=== PATIENT | female | born 1945 | race Caucasian/White ===

== ENCOUNTER 2020-02-01 07:53 | Outpatient (CLI) | payer MEDICARE, SELFPAY ==
--- NOTE | 2020-02-01 09:26 | CT_ITS ---
WS: [id number] CT ABDOMEN PELVIS TECHNIQUE: Contrast-enhanced CT of the abdomen and pelvis with coronal and sagittal reformatted image s. CLINICAL INFORMATION: RLQ PAIN COMPARISON: None. DLP: 1088.[address] scans at [facility] use at least one of these dose optimization techniques: automat ed exposure control; mA and/or kV adjustment per patient size (includes targeted exams where dose is matched to clinical indication); or iterative reconstruction. FINDINGS: Prior cholecystectomy. Prior hysterectomy. Liver is normal in appearance. Normal portal vein and sple ben vein. A few tiny cysts in the liver. Normal spleen. Adrenal glands are normal. Normal renal paren chymal enhancement. No hydronephrosis. 15 mm right renal cyst. Small esophageal hiatal hernia. Prominent lymph nodes in the upper abdomen along the celiac axis likely reactive. Mild circumferentia l wall thickening involving the right ascending colon and splenic flexure. Recommend further evaluati on with colonoscopy. Mild sigmoid constipation. Pelvic phleboliths. Lung bases are well aerated. No periaortic retroperitoneal lymphadenopathy. Lumbar curve convex left. CT/CT abdomen pelvis w con* [id number] IMPRESSION: 1. Prior cholecystectomy and hysterectomy. 2. Mild circumferential thickening involving the right colonic splenic flexure with some luminal narrowing. Recommend further evaluation with colonoscopy to exclude neoplasm. 3. Liver is normal in appearance. 4. Small esophageal hernia. 5. Small right renal cyst measuring 15 mm. 6. Mild sigmoid constipation. 7. Normal caliber abdominal aorta.
[2020-02-01] MEDS: iohexol 300 mg/mL 50 mL Btl PO (09:39)
[2020-02-01] MEDS: iohexol 300 mg/mL 100 mL Btl IV (09:40)
[2020-02-01 09:45] LABS: Blood Urea Nitrogen 10 mg/dL (8-23)
== END 2020-02-01 07:54 | disposition home or self-care (01) ==
LOC: RADWPI 07:59
PROVIDERS: Family Provider Family Medicine; PCP Family Medicine; Visit Provider Family Medicine
DX: I10 Essential (primary) hypertension (principal); R10.31 Right lower quadrant pain; K44.9 Diaphragmatic hernia without obstruction or gangrene; Q61.01 Congenital single renal cyst; K59.09 Other constipation
CPT/HCPCS: 74177; 82565; 84520; Q9967

== ENCOUNTER 2020-02-29 09:55 | Day surgery (SDC) | payer MEDICARE, SELFPAY ==
[2020-02-27 13:59] VITALS: BMI 24.1
[2020-02-29 10:09] VITALS: BP 144/89; PULSE 81; RESP 18; TEMP 36.1; O2SAT 98
[2020-02-29] MEDS: sodium chloride 0.9% 1,000 ML 30 ML IV (10:30)
--- NOTE | 2020-02-29 10:38 | P.ANESASSM_ITS ---
Pre-Anesthetic Assessment Pre-Anesthetic Assessment: Height/Weight: Height 1.65 m Weight 65.771 kg Temp Pulse Resp BP Pulse Ox 97 F L 81 18 144/89 98 02/29/20 10:09 02/29/20 10:09 02/29/20 10:09 02/29/20 10:09 02/29/20 10:09 Preop Diagnosis: Colon wall thickening Proposed Procedure: Operation Date: 02/29/20 11:15 Proposed Procedures p Colonoscopy 30109/K63.9(Not Applicable) - Jarod Dyer MD Last intake: Intake Last Liquid Date 02/28/20 Last Liquid Time 23:00 Last Solid Date 02/27/20 Last Solid Time 18:00 Social: Social History: No alcohol and No tobacco Exam: Pre-Anes Outpt Exam: alert, oriented x 3, clear to auscultation bilaterally and regular rate & rhythm Airway: Submandibular: WNL Cervical ROM: WNL MP: 2 Dentition: Other (poor) History/ROS: No significant history except as noted Pulmonary: Pulmonary: None reported CV/HEM: CV/HEM: HTN : : None reported Hepatic: Hepatic: None reported GI: GI: None reported Metabolic: Metabolic: None reported Musc/skel: Musc/skel: None reported Neuropsych: Neuropsych: Anxiety and Depression Anesthetic Plan: ASA status: 2 Anesthesia: Anesthesia Evaluation and MAC Risk of > 500 ml blood loss (7ml/kg in children): No PFSH Anesthesia PFSH: Medical History Chronic constipation Hypertension Left breast lump Melanoma Surgical History History of colonoscopy with polypectomy History of hysterectomy History of laparoscopic cholecystectomy Family History Denies family history of Anesthesia complication Bleeding disorder Social History Smoking and tobacco status: never smoked Second hand smoke exposure: No Alcohol intake: never Adopted: No Caregiver/support person: Yes Lives independently: Yes Household members: spouse Housing: House Marital status: Current occupational status: retired Current occupational exposures/hazards: No Pets and animals: No History of recent travel: No Sexually active: No Current gender identity: Female Se[place]/Samaritan: Restorationism Data Anesthesia Cardiac Studies: No Data to Display
--- NOTE | 2020-02-29 11:47 | W.PM.OPSUD ---
Surgery/Procedure H&P Update DATE OF PROCEDURE: February 29, 2020 DATE H&P PERFORMED: 02/19/20 H&P UPDATE INFORMATION: I have reviewed H&P completed within last 30 days, I have examined patient prior to procedure and No changes to prior documentation PREOP DIAGNOSIS: Colon wall thickening PLANNED PROCEDURE: Operation Date: 02/29/20 11:15 Proposed Procedures p Colonoscopy 20395/K63.9(Not Applicable) - Jarod Dyer MD
[2020-02-29 12:41] VITALS: BP 134/72; PULSE 71; RESP 18; TEMP 36.2; O2SAT 94
[2020-02-29 12:56] VITALS: BP 135/70; PULSE 72; RESP 18; TEMP 36.6; O2SAT 96
== END 2020-02-29 13:15 | disposition home or self-care (01) ==
PROVIDERS: PCP Family Medicine; Visit Provider Surgery
PROC: 0DJD8ZZ Inspection of Lower Intestinal Tract, Via Natural or Artificial Opening Endoscopic (ICD-10-PCS; CPT 45378; principal; 2020-02-29 11:10)
DX: K63.9 Disease of intestine, unspecified (principal); K57.30 Diverticulosis of large intestine without perforation or abscess without bleeding; I10 Essential (primary) hypertension
CPT/HCPCS: 12345; 45378; J2704; J7030

== ENCOUNTER 2020-09-16 15:16 | Outpatient (CLI) | payer MEDICARE, SELFPAY ==
--- NOTE | 2020-09-16 15:21 | MM_ITS ---
WS: [id number] BILATERAL DIGITAL SCREENING MAMMOGRAPHY WITH CAD CLINICAL INFORMATION: SCREENING HISTORY: Screening mammogram. No current complaints. COMPARISON: and TECHNIQUE: Bilateral CC and MLO views. FINDINGS: Scattered fibroglandular densities bilaterally. No suspicious focal mass, asymmetry, calcifications, or architectural distortion. No evidence of malignancy. A few intramammary lymph nodes. Punctate calc ifications. Stable 6 mm ovoid density inferior left breast MM/[place] [id number] IMPRESSION: BI-RADS: 2-Benign FOLLOW UP: 1 Year Follow-up Recommend return to annual screening mammography.
== END 2020-09-16 15:17 | disposition home or self-care (01) ==
LOC: RADSHAW 15:19
PROVIDERS: PCP Family Medicine; Visit Provider Family Medicine
DX: Z12.31 Encounter for screening mammogram for malignant neoplasm of breast (principal)
CPT/HCPCS: 77067

== ENCOUNTER 2020-09-19 05:57 | Outpatient (CLI) | payer MEDICARE, SELFPAY ==
[2020-09-19 10:46] LABS: Basophils # 0.1 10^3/uL (0.0-0.1); Eosinophils # 0.1 10^3/uL (0.0-0.8); Eosinophils % 1.2 %; Hematocrit 42.7 % (37.0-47.0); Lymphocytes # 2.4 10^3/uL (0.8-4.8); Lymphocytes % 23.9 %; Mean Corpuscular HGB Conc 32.8 g/dL (30.0-36.0); Mean Corpuscular Hemoglobin 27.7 pg (28.0-34.0); Mean Corpuscular Volume 84.4 fL (81-99); Mean Platelet Volume 9.9 fL (7.4-10.4); Monocytes # 0.7 10^3/uL (0.2-0.9); Monocytes % 6.7 %; Neutrophils # 6.72 10^3/uL (1.8-7.7); Nucleated Red Blood Cells % 0 %; Platelet Count 439 10^3/cmm (130-400); Red Blood Count 5.06 10^6/uL (4.1-5.3); Red Cell Distribution Width 13.4 % (12.1-15.1)
[2020-09-19 11:01] LABS: Alanine Aminotransferase 18 U/L (0-33); Albumin Level 4.4 g/dL (3.5-5.2); Alkaline Phosphatase 86 IU/L (35-105); Anion Gap 15.8 (5-19); Aspartate Amino Transferase 20 U/L (0-32); Blood Urea Nitrogen 9 mg/dL (8-23); Calcium 9.8 mg/dL (8.5-10.5); Carbon Dioxide 25 mmol/L (22-29); Chloride 100 mmol/L (98-107); Globulin 3.2 g/dL (1.3-4.6); Glucose 97 mg/dL (65-115); Lactate Dehydrogenase 161 U/L (135-214); Osmolality Calculated 283 mOsm/kg (285-295); Potassium 3.8 mmol/L (3.5-5.1); Sodium 137 mmol/L (136-145); Total Bilirubin 0.4 mg/dL (0.15-1.2); Total Protein 7.6 g/dL (6.6-8.7)
--- NOTE | 2020-09-22 15:38 | ONC FU_ITS ---
Dr. Kruse Patient Follow-Up Note Patient: Roselia Isabel Unit #: [id number]: [id number] Dicatated By: Solomon Kruse M.D.Date of Visit:Sep 19, 2020 Onc Med Follow-up/Prog Note Chief Complaint: Melanoma. History of Present Illness: This is a 75 year-old woman with melanoma of the left cheek, stage IB (T2a, N0, M0). She underwent wide excision of the melanoma in September 2012. Complete records were not available to me, but it was a Dev level IV lesion with a Breslow depth of 1.12 mm. Her treatment also included left cervical and left supraclavicular sentinel lymph node biopsies, which apparently were negative. She also had a staging PET/CT which showed no definite evidence of malignancy. The findings did include bilateral subcentimeter cervical lymph nodes which showed minimal activity and were felt to be nonspecific. There was moderate activity associated with a 1.2 cm hypodense lesion of the right thyroid. She did not receive any further treatment. She has since then continued regular surveillance with Dr. Nelson Garcia in [place]. On a follow-up visit wit him in 2014 she had a palpable nodule in the left cervical area, and as a precaution Dr Kruse was asked to evaluate her. She was seen here on 07/12/2015. At the time she reported that she had been having problems with a left lower tooth. She was seeing a dentist, and she ultimately did have the tooth capped. Her evaluation Carla included CBC and comprehensive metabolic profile, both of which were unremarkable. She had normal LDH level and normal thyroid profile. At the time Dr Kruse felt that the left cervical lymph node was not clinically significant, and ultimately it appeared to more likely be a prominent left carotid artery. She is being followed on observation. She has additional history of hypertension and she also is known to have multinodular goiter. She was noted to have osteoporosis on a previous CT bone density, and a repeat Dexa scan in August 2015 also showed evidence of osteopenia with T score of -1.8 in the lumbar spine, -1.5 in the left femur and -1.9 in the right femur. Her 25-hydroxy vitamin D level was low at 18 ng/mL. She also has a history of anxiety/depression. Colonoscopy in August 2015 showed 2 tiny polyps in the ascending colon with pathology just reporting minor adenomatous and hyperplastic changes. She is a nonsmoker. She had presented in February 2016 with multiple complaints including fatigue and generalized muscle skeletal pain. Her evaluation at that time included normal CBC, sedimentation rate, and CRP level. The comprehensive metabolic profile was unremarkable except for slight elevation of the calculated serum globulin level. RA titer was normal and an JALEEL screen was negative. An x-ray of the pelvis was negative. She continued observation/expectant management for the melanoma. INTERIM HISTORY: She is seen for a followup visit. She has been feeling pretty good generally. She is tired at times, but she still has normal activity. ECOG score is 0. She has good appetite. She has no fever or night sweats. She has a little bit of cough, attributable to allergies. She has no shortness of breath or chest pain. She currently has no GI or complaints. She sometimes has stiffness in her joints, especially at night. She does have pain, but it is managed adequately with tramadol. She sometimes has a little bit of dizziness. She has no focal neurologic symptoms. Medications: Aleve Tablet Oral PRN, AmLODIPine Besylate 1 Tablet (of 5 mg) Oral daily, Cholecalciferol 1 (1000 Units) Tablet Oral daily, TraMADol HCl 1 Tablet (of 50 mg) Oral at bedtime PRN, Wal-Zyr 1 Tablet (of 10 mg) Oral daily Allergies: No Known Allergies. Review of Systems: Constitutional - She sometimes feels tired, she has normal activity. Appetite is good and weight is stable. No fever, night sweats, or hot flashes. ECOG score is 0, ENMT - No sinus congestion/drainage. No mouth sores. No sore throat or difficulty swallowing, Hematologic/Lymphatic - No abnormal bruising or bleeding, Respiratory - No shortness of breath. She has a little bit of cough, attributable to allergies. No pleuritic pain or hemoptysis, Cardiovascular - No angina pain. No palpitations, Gastrointestinal - No nausea or vomiting. No heartburn or acid reflux. She was having constipation, but her bowel function has improved now. No blood in the stool or black stools, Genitourinary (F) - No dysuria or hematuria. No urinary frequency. No urgency or incontinence, Musculoskeletal - She sometimes has stiffness in her joints, which tends to be worse at night, Integumentary - No skin rash and no new skin lesions, Neurologic - No headache. She sometimes has a little bit of dizziness. No numbness or tingling. No other focal neurologic symptoms, Psychiatric - Her anxiety/depression has improved. She still does not sleep well at night. Vital Signs: Performed on Sep 19, 2020 11:38 Height - 65.00 in Weight - 150.6 lbs BSA - 1.75 sq.m BMI - 25.06 Temperature - 97.3 F (LOW) Pulse - 89 /min Respiration - 16 /min BP - 141/74 mm(hg) (HIGH) O2 Sat - 99 % Pain - 0 Physical Examination: Constitutional - She looks good generally, Eyes - Sclerae nonicteric. Conjunctivae clear, ENMT - No lesions noted in the oral cavity, Hematologic/Lymphatic - No cervical, clavicular, or axillary adenopathy, Respiratory - Lungs are clear with good air movement bilaterally, Cardiovascular - Heart rhythm is regular. There is no murmur, gallop, or rub noted, Abdomen - Soft. Liver and spleen are not enlarged. There is no abdominal mass or ascites noted and there is no inguinal adenopathy, Extremities - No edema, Integumentary - No suspicious skin lesions noted, Neurologic - No focal neurologic deficits noted. Lab/Imaging: Test performed on Sep 19, 2020 10:30 LDH (Total) 161 U/L Sodium 137 mmol/L Potassium 3.8 mmol/L Chloride 100 mmol/L CO2 25 mmol/L Anion Gap 15.8 BUN 9 mg/dL Creatinine 0.6 mg/dL Cr Clearance (Est) 88.7100 mL/min Glucose 97 mg/dL Osmolality - Calculated 283 mOsm/kg Calcium 9.8 mg/dL Protein, Total 7.6 g/dL Albumin 4.4 g/dL Globulin 3.2 g/dL Bilirubin, Total 0.4 mg/dL ALT (SGPT) 18 U/L AST (SGOT) 20 U/L Alkaline Phosphatase 86 IU/L WBC 10.0 10 3/uL RBC 5.06 10 6/uL HGB 14.0 g/dL HCT 42.7 % MCV 84.4 fL MCH 27.7 pg MCHC 32.8 g/dL RDW 13.4 % Platelet Count 439 10 3/cmm MPV 9.9 fL Neutrophils 6.72 10 3/uL Lymphocytes 2.4 10 3/uL Monocytes 0.7 10 3/uL Eosinophils 0.1 10 3/uL Basophils 0.1 10 3/uL Neutrophil % 67.0 % Lymphocyte % 23.9 % Monocyte % 6.7 % Eosinophil % 1.2 % Basophils % 1.0 % NRBC % 0 % Impression: 1. The patient has a history of melanoma of the left cheek, stage IB (pT2a, pN0, M0). Her treatment included wide excision in September 2012 along with sentinel left cervical and sentinel left supraclavicular lymph node biopsies. She has otherwise just been followed on observation. 2. She was found to have a left neck nodule in 2014. This was initially thought to be a mildly enlarged cervical lymph node, but it appears more likely to be a prominent left carotid artery. Her other medical illnesses include: 3. Hypertension. 4. Multinodular goiter. 5. Osteopenia by dexa scan. 6. Vitamin D deficiency. 7. Chronic constipation. 8. Anxiety/depression. During her follow-up, she had reported significant musculoskeletal pain, but it did show some improvement with chondroitin sulfate/glucosamine. It is otherwise adequately managed with tramadol. She also continues to have some fatigue, but overall she appears to be doing well clinically with no evidence of recurrence of the melanoma. Plan: She remains on observation/expectant management for the melanoma. She will be given refills for the tramadol, as it has been effective in managing her pain. I will just see her again in 1 year. Signed By: Solomon Kruse M.D. <<Signature on File>>
== END 2020-09-19 05:58 | disposition home or self-care (01) ==
LOC: ONCMED 06:00
PROVIDERS: PCP Family Medicine; Visit Provider Internal Medicine Medical Oncology
DX: Z08 Encounter for follow-up examination after completed treatment for malignant neoplasm (principal); Z85.820 Personal history of malignant melanoma of skin; I10 Essential (primary) hypertension; E04.2 Nontoxic multinodular goiter; M85.80 Other specified disorders of bone density and structure, unspecified site; E55.9 Vitamin D deficiency, unspecified; K59.09 Other constipation; F41.9 Anxiety disorder, unspecified; F32.9 Major depressive disorder, single episode, unspecified; R53.83 Other fatigue; Z79.899 Other long term (current) drug therapy
CPT/HCPCS: 36415; 80053; 83615; 85025; G0463

== ENCOUNTER → 2021-10-08 15:20 | Outpatient (BNVA) | payer MEDICARE, SELFPAY | PROVIDERS: PCP Family Medicine; Visit Provider Family Medicine Adult Medicine | DX: Z20.828 Contact with and (suspected) exposure to other viral communicable diseases (principal) | CPT/HCPCS: 87635 ==

== ENCOUNTER → 2023-05-18 10:22 | Outpatient (BNVA) | payer MEDICARE, SELFPAY | PROVIDERS: PCP Family Medicine; Visit Provider Family Medicine | DX: Z98.890 Other specified postprocedural states (principal); Z85.820 Personal history of malignant melanoma of skin; E55.9 Vitamin D deficiency, unspecified; I10 Essential (primary) hypertension; Z00.00 Encounter for general adult medical examination without abnormal findings | CPT/HCPCS: 80053; 80061; 82306; 85025 ==

== ENCOUNTER 2023-06-04 13:24 | Outpatient (CLI) | payer MEDICARE, SELFPAY ==
--- NOTE | 2023-06-04 13:46 | MM_ITS ---
WS: [id number] BILATERAL 3D TOMOSYNTHESIS DIGITAL SCREENING MAMMOGRAPHY WITH CAD CLINICAL INFORMATION: SCREENING HISTORY: Screening mammogram. No current complaints. COMPARISON: 2020 TECHNIQUE: Bilateral CC and MLO views. FINDINGS: Scattered fibroglandular densities bilaterally. No suspicious focal mass, asymmetry, calcifications, or architectural distortion. No evidence of malignancy. Punctate and lucent centered calcifications R IGHT breast. Stable 5 mm nodular density anterior inferior LEFT breast IMPRESSION: MM/[place] [id number] BI-RADS: 2-Benign FOLLOW UP: 1 Year Follow-up Recommend return to annual screening mammography.
== END 2023-06-04 13:25 | disposition home or self-care (01) ==
LOC: RAD 13:26
PROVIDERS: PCP Family Medicine; Visit Provider Family Medicine
DX: Z12.31 Encounter for screening mammogram for malignant neoplasm of breast (principal)
CPT/HCPCS: 77063; 77067; 80053; 80061; 82306; 85025

== ENCOUNTER → 2023-06-23 13:07 | Outpatient (BNVA) | payer MEDICARE, SELFPAY | PROVIDERS: PCP Family Medicine; Visit Provider Dermatology | DX: D18.01 Hemangioma of skin and subcutaneous tissue (principal); Z85.820 Personal history of malignant melanoma of skin; L82.1 Other seborrheic keratosis; L81.4 Other melanin hyperpigmentation | CPT/HCPCS: 99203 ==

== ENCOUNTER → 2024-06-15 10:46 | Outpatient (BNVA) | payer MEDICARE, SELFPAY | PROVIDERS: PCP Family Medicine; Visit Provider Family Medicine | DX: E11.9 Type 2 diabetes mellitus without complications (principal); R10.9 Unspecified abdominal pain | CPT/HCPCS: 80053; 80061; 81000; 83690; 84443; 85025 ==

== ENCOUNTER 2025-03-22 13:28 | Outpatient (CLI) | payer MEDICARE, SELFPAY ==
--- NOTE | 2025-03-22 14:00 | XR_ITS ---
WS: [id number] SCREENING DEXA SCAN [facility] CLINICAL INFORMATION: f/uon osteoporosis COMPARISON: 2018 FINDINGS: The L1-L4 bone mineral density measures 1.032 g/cm2. This corresponds to a T score score of -1.2 and Z score of 0.5. Left femoral neck bone mineral density measures 0.603 g/cm2. This corresponds to a T score of -3.2 and Z score of -1.3. Right femoral neck bone mineral density measures 0.664 g/cm2. This corresponds to a T score -2.7of and Z score of -0.8. Mean femoral neck bone mineral density measures 0.634 g/cm2. This corresponds to a T score of -3.0 and Z score of -1.1. XR/XR DEXA axial skeleton* [id number] IMPRESSION: Osteopenia lumbar spine. Osteoporosis femoral necks. Patient's FRAX calculated 10 year probability for major osteoporotic fracture i s 25.0% and osteoporotic hip fracture is 10.5%. Bone mineral density lumbar spine increased 6.3% Bone mineral density femoral necks decreased -12.7%
== END 2025-03-22 13:29 | disposition home or self-care (01) ==
PROVIDERS: PCP Family Medicine; Visit Provider Family Medicine
DX: M81.0 Age-related osteoporosis without current pathological fracture (principal); Z00.00 Encounter for general adult medical examination without abnormal findings; M85.88 Other specified disorders of bone density and structure, other site
CPT/HCPCS: 77080

== ENCOUNTER 2025-03-27 07:22 | Outpatient (CLI) | payer MEDICARE, SELFPAY ==
--- NOTE | 2025-03-27 07:25 | CT_ITS ---
WS: [id number] CT NECK WITH CONTRAST HISTORY: hx of melanoma TECHNIQUE: Contiguous 2 mm axial images are performed through the neck with intravenous contrast. Sagittal and coronal reformats are also submitted. All CT scans at [facility] use at least one of these dose optimization techniques: automated exposure control; mA and/or kV adjustment per patient size (includes targeted exams where dose is matched to clinical indication); or iterative reconstruction. CONTRAST: CONTRAST: Omnipaque 350; 100 mL IV. DLP: 172.81 mGy.cm COMPARISON: 01/14/2006 Nasopharynx, oropharynx, hypopharynx and larynx are unremarkable. No soft tissue masses or abnormal enhancement. Torus tubarius and fossa of Rosenmuller and parapharyngeal fat are normal. Numerous small bilateral cervical chain lymph nodes. These lymph nodes are round and slightly hypervascular with loss of the normal fatty hilum. The largest lymph node is on the RIGHT measuring 10 mm in short axis diameter at level 2. Smaller 7 mm LEFT level 2 lymph node. There are additional cervical chain lymph nodes at multiple stations which are smaller. The subcentimeter lymph nodes are hypervascular but not enlarged. There are a few small lymph nodes in the mediastinum which are also subcentimeter but rounded and hypervascular. 13 mm RIGHT axillary lymph node. Small bilateral thyroid nodules. No osseous abnormalities. Advanced cervical spondylosis. Bilateral mucoperiosteal thickening in the maxillary sinuses. No air-fluid levels. Lung apices are clear. CT/CT neck w con* [id number] IMPRESSION: 1. Multiple, mildly hyperemic bilateral cervical chain lymph nodes. The larges t lymph node is at level 2 on the RIGHT measuring 10 mm in short axis diameter. Lymph nodes were also noted on a prior CT from 2005 and similar distributions. The lymph nodes in 2006 are slightly greater size than on today's exam. Due to their number and round appearance early metastatic adenopathy needs to be cons idered. The lymph nodes are not significantly enlarged. 2. Mildly enlarged, indeterminate RIGHT axillary lymph node at 13 mm. 3. No laryngeal or pharyngeal mass identified. 4. Consider PET/CT follow-up to evaluate the adenopathy further.
[2025-03-27] MEDS: iohexol 350 mg/mL 500 mL Btl (per mL) IV (07:57)
== END 2025-03-27 07:23 | disposition home or self-care (01) ==
PROVIDERS: Radiology Neuroradiology; PCP Family Medicine; Visit Provider Family Medicine
DX: M47.892 Other spondylosis, cervical region (principal); Z98.890 Other specified postprocedural states; Z85.820 Personal history of malignant melanoma of skin; R59.0 Localized enlarged lymph nodes; E04.2 Nontoxic multinodular goiter; J34.89 Other specified disorders of nose and nasal sinuses
CPT/HCPCS: 70491; 82565; 84520

== ENCOUNTER 2025-04-06 08:32 | Outpatient (CLI) | payer MEDICARE, SELFPAY ==
--- NOTE | 2025-04-06 08:30 | PETR_ITS ---
PROCEDURE INFORMATION: Exam: PET/CT Skull Base to Mid-thigh Exam date and time: 04/06/2025 9:25 AM Age: 79 years old Clinical indication: Symptoms: Enlarged lymph nodes; Prior surgery; Surgery date: 6+ months; Surgery type: Melanoma removed left side of face and neck; Melanoma 2013 left cheek; Additional info: New lymph nodes/ HX of melanoma LABS AND CLINICAL REPORTS: Glucose: 104 mg/dl Treatment strategy for malignancy (PET staging): Restaging (PS) TECHNIQUE: Imaging protocol: Following at least four-hour fasting and following the injection of radiopharmaceutical, low dose CT images were obtained. Then, PET images were obtained. Attenuation corrected images were constructed using the CT scan. Fused images of PET and CT were reviewed. The standardized uptake values (SUV) reported below are maximum values within a region of interest, expressed in gm/ml. Exam includes orbital meatal line to mid-thigh. SUV normalization method: BodyWeight Radiopharmaceutical: 11.51 mCi F-18 FDG (Fluorodeoxyglucose), IV. Time of imaging post radiopharmaceutical administration: 47 minutes Injection site: left ac COMPARISON: CT neck w con* [id number] 03/27/2025 7:55 AM FINDINGS: Brain: Visualized brain has normal physiologic uptake. Pharynx: No abnormal uptake. Larynx: No abnormal uptake. Thyroid: Focal coarsely calcified right thyroid lobe nodule measuring 1.0 cm demonstrating increased FDG uptake, maximum SUV 4.5. Lungs, pleura and trachea: No abnormal uptake. Scattered punctate calcified granulomas. Heart: Normal physiologic uptake. Mediastinal space: No abnormal uptake. Diaphragm: There is a small hiatal hernia. Liver: No abnormal uptake. The liver demonstrates punctate calcifications, consistent with remote granulomatous organism exposure. Gallbladder and biliary ducts: No abnormal uptake. Status post cholecystectomy. Pancreas: No abnormal uptake. Spleen: No abnormal uptake. The spleen demonstrates punctate calcifications, consistent with remote granulomatous organism exposure. Adrenal glands: No abnormal uptake. Kidneys and ureters: Normal physiologic uptake. Scattered bilateral simple renal cysts without FDG uptake. Stomach and bowel: No abnormal uptake. Colonic diverticulosis without evidence of diverticulitis. Reproductive: There has been a hysterectomy. Vasculature: No abnormal uptake. Lymph nodes: Bilateral mildly prominent cervical lymph nodes, including a stable enlarged 1.0 cm right level 2A lymph node. There are scattered prominent mediastinal lymph nodes measuring up to 1.0 cm in short axis in the precarinal station. Additional left common and external iliac lymphadenopathy, with lymph nodes measuring up to 1.2 cm in short axis. There is no abnormal FDG uptake. No abnormal mikey uptake in the head/neck, chest, abdomen or pelvis. Skeleton: No abnormal uptake in the visualized axial and appendicular skeleton. Soft tissues: No abnormal uptake in the visualized head, neck, chest, abdomen, pelvis, and extremities. METRICS: Mediastinal blood pool: Mean SUV of 2.1 Liver uptake: Mean SUV of 2.4 Other findings: Nonspecific fat stranding and haziness along the left presacral space with increased FDG uptake, maximum SUV 8.8 (see for example series 202, images 231-249 and series 202, images 233-245). PET/PET skull to thigh INIT [id number] IMPRESSION: 1. Nonspecific right cervical, mediastinal and intra-abdominal lymphadenopathy without abnormal FDG uptake. Findings remain nonspecific and possibly reactive, although continued surveillance is recommended. 2. Nonspecific FDG avid right thyroid lobe 1.0 cm nodule. Recommend dedicated thyroid ultrasound. 3. Nonspecific fat stranding and haziness along the left presacral space with increased FDG uptake, maximum SUV 8.8. This area of fat stranding is similar to slightly more conspicuous compared to a prior study from 2020. There is no focal lesion. This may be inflammatory or sequela of prior treatment, although remains indeterminate.
== END 2025-04-06 08:33 | disposition home or self-care (01) ==
PROVIDERS: PCP Family Medicine; Visit Provider Family Medicine
DX: R59.1 Generalized enlarged lymph nodes (principal); Z98.890 Other specified postprocedural states; Z85.820 Personal history of malignant melanoma of skin; E04.1 Nontoxic single thyroid nodule; R93.89 Abnormal findings on diagnostic imaging of other specified body structures; J84.10 Pulmonary fibrosis, unspecified; K44.9 Diaphragmatic hernia without obstruction or gangrene; R93.2 Abnormal findings on diagnostic imaging of liver and biliary tract; Z90.49 Acquired absence of other specified parts of digestive tract; D73.89 Other diseases of spleen; N28.1 Cyst of kidney, acquired; K57.30 Diverticulosis of large intestine without perforation or abscess without bleeding; Z90.710 Acquired absence of both cervix and uterus
CPT/HCPCS: 78815; A9552

== ENCOUNTER 2025-04-17 13:53 | Outpatient (CLI) | payer MEDICARE, SELFPAY ==
--- NOTE | 2025-04-17 14:00 | US_ITS ---
WS: [id number] THYROID ULTRASOUND HISTORY: thyroid nodule on PET scan COMPARISON: Ultrasound 04/02/2016, PET/CT 04/06/2025 Right lobe: 1.5 cm x 1.6 cm x 3.3 cm (w x ap x l). Volume: 3.9 cm3. Normal sized gland. Solid and cystic nodule with coarse calcification in the mid to lower RIGHT thyroid. Nodule measures 1.1 x 1.0 x 1.4 cm. There are a few smaller additional nodules. Left lobe: 1.3 cm x 1.9 cm x 4.5 cm (w x ap x l). Volume: 5.4 cm3. Normal sized gland with several nodules. Solid and cystic nodule mid gland with a few punctate calcifications measures 1.0 x 1.2 x 1.6 cm. Additional solid nodule with a few punctate calcifications measures 1.2 x 1.2 x 1.4 cm. Location has not been otherwise labeled. These nodules appear to be in the mid and lower gland. Isthmus: 0.2 cm. US/US thyroid [id number] IMPRESSION: 1. Bilateral thyroid nodules. 2. TI-RADS 4; mid RIGHT thyroid nodule. This corresponds to the nodule seen on recent PET/CT imaging. FNA can be attempted or yearly follow-up. FNA is not typ ically recommended until these nodules are greater than 1.5 cm. Due to the PET/ CT findings FNA can be attempted at this time. 3. TI-RADS 4; 2 nodules in the LEFT thyroid. Both of these nodules have punctat e calcifications and suspicious features. Recommend ultrasound-guided FNA.
== END 2025-04-17 13:54 | disposition home or self-care (01) ==
PROVIDERS: PCP Family Medicine; Visit Provider Family Medicine
DX: E04.2 Nontoxic multinodular goiter (principal); E07.89 Other specified disorders of thyroid
CPT/HCPCS: 76536

== ENCOUNTER 2025-05-21 12:36 | Emergency (ER) | payer MEDICARE, SELFPAY ==
--- OUTSIDE RECORDS SUMMARY | 2025-05-21 12:42 | XMS_ITS | Encounter Summary ---
Author Organization [facility] Address [address] [place] [address] Care Team Providers Care Stamp Classifier Name Role Phone Unavailable Primary Care Provider Unavailabl e Encounter Details Date Type Department Care Team (Latest Contact Info) Description 07/11/2003 Outpatient Historical [facility] Germain Mendiola, Feliberto Guzman MD [address] [place] [phone] HYPERTENSION NOS (Primary Dx); BRONCHITIS NOS; TACHYCARDIA NOS; HEMATURIA Social History Tobacco Use Types Packs/Day Years Used Date Smoking Tobacco: Never Assessed Comments Unknown Sex and Gender Information Value Date Recorded Sex Assigned at Not on file Legal Sex Female 4:03 AM [employer] Gender Identity Not on file Sexual Orientation Not on file documented as of this encounter Plan of Treatment Not on file documented as of this encounter Visit Diagnoses Diagnosis Unspecified essential hypertension- Primary Bronchitis, not specified as acute or chronic Tachycardia, unspecified Hematuria documented in this encounter
--- OUTSIDE RECORDS SUMMARY | 2025-05-21 12:42 | XMS_ITS | Patient Health Record ---
Author Organization [facility] Address [address] [place] [address] Care Team Providers Care Trolley Wire Installer Name Role Phone Feliberto Groves Unavailable [phone] Reason For Referral No Information Medications Medication SIG (Take, Route, Frequency, Duration) Notes Start Date End Date Status Norvasc 5 MG Tablet Take 1 tab(s) by mouth q evening Oral; Duration: 30 Norvasc (Amlodipine ) 5mg Tablet Take 1 tab(s) by mouth q evening #30 (Thirty) tablet(s) 10/21/2012 Active Simvastatin 20 MG Tablet Take 1 tablet(s) by mouth at bedtime Oral; Duration: 30 Simvastatin 20mg Tablet Take 1 tablet(s) by mouth at bedtime #30 (Thirty) tablet(s) 11/12/2011 Active Sertraline HCl 50 MG Tablet Take 1 tab(s) by mouth qd in the a m Oral; Duration: 30 Sertraline HCl (Sertraline HCl) 50mg Tablet Take 1 tab(s) by mouth qd in the a m #30 (Thirty) tablet(s) 11/12/2011 Active Social History Social History Additional Details Category Social Info Options Details zzMigrated Social History Migrated Social History Advance Directive: Current and Verified Signed on 04/04/2012 Organ Donation: Patient refuses Organ Donation Problems Problem Type SNOMED Code ICD Code Onset Dates Problem Status W/U Status Risk Notes Problem Generalized anxiety disorder (85165722) Anxiety, generalized (300.02) 2010 Active confirmed [id number]- Problem Hiatal hernia (00185374) Hiatal hernia (553.3) 2015 Active confirmed [id number]- Problem Dizziness (463685939) Dizziness (780.4) 0 2011 Active confirmed [id number]- Problem Hypercholesterolemia (86842012) Hypercholesterolemia (272.0) 2009 Active confirmed [id number]- Problem T12 compression fracture (805.2) 2016 Active confirmed [id number]- Problem Allergic rhinitis caused by pollen (88390057) Allergies (477.0) 2009 Active confirmed [id number]- Problem Enlargement of thyroid (3519628) Enlargement of thyroid (240.9) 2011 Active confirmed [id number]- Problem Insect bite (901444298) Insect bite (919.4) 2018 Active confirmed [id number]- Problem Tension headache (028800447) Tension headache (307.81) 2017 Problem resolved confirmed [id number]- Problem Carpal tunnel syndrome (63466197) Carpal tunnel syndrome (354.0) 2017 Problem resolved confirmed [id number]- Problem Slow transit constipation (73923105) Slow transit constipation (564.01) 2018 Problem resolved confirmed [id number]- Problem Gross hematuria (385024100) Gross hematuria (599.71) 2016 Problem resolved confirmed [id number]- Problem Wheezing (64289782) Wheezing (786.07) 2016 Problem resolved confirmed [id number]- Problem Cough (91342244) Cough (786.2) 2003 Problem resolved confirmed [id number]- Problem Low back pain (943890003) Low back pain (724.2) 2004 Problem resolved confirmed [id number]- Problem Shoulder pain (01335195) Shoulder pain (719.41) 2009 Problem resolved confirmed [id number]- Problem Disorder of hematopoietic system (91009355) Other abnormal findings on blood examination (790.99) 2017 Problem resolved confirmed [id number]- Problem Disorder of hematopoietic system (23437368) Other abnormal laboratory result on blood (790.99) 2016 Problem resolved confirmed [id number]- Problem Sore throat (383007927) Sore Throat (462) 2017 Problem resolved confirmed [id number]- Problem Atypical mole syndrome (990469747) Atypical mole (238.2) 2008 Problem resolved confirmed [id number]- Problem Generalized abdomina l pain (418988780) Generalized abdominal pain (789.07) 2005 Problem resolved confirmed [id number]- Problem Irritable bowel syndrome (12586026) IBS, constipating type (564.1) 2006 Problem resolved confirmed [id number]- Problem Influenza (3001825) Influenza, w ith other respiratory manifestation (487.1) 2003 Problem resolved confirmed [id number]- Problem Lymphadenopathy (68568003) Lymphadenopathy (785.6) 2005 Problem resolved confirmed [id number]- Problem Muscle pain (85385994) Myalgias, unspecified (729.1) 2010 Problem resolved confirmed [id number]- Problem Ear ache (324249276) Ear ache (388.71) 2007 Problem resolved confirmed [id number]- Problem Hyponatremia (75010898) Hyponatremia (276.1) 2016 Problem resolved confirmed [id number]- Problem Insulin resistance syndrome (395240436) Insulin resistance syndrome (251.8) 2010 Problem resolved confirmed [id number]- Problem Seborrheic dermatiti s (60208376) Seborrheic dermatitis (690.18) 2010 Problem resolved confirmed [id number]- Problem Sore throat (633153863) Sore throat (784.1) 2004 Problem resolved confirmed [id number]- Problem Thyroid mass (391564606) Thyroid mass (240.9) 2005 Problem resolved confirmed [id number]- Problem Acute upper respiratory infection (96966842) Acute upper respiratory infection (465.8) 2004 Problem resolved confirmed [id number]- Problem Neoplasm of uncertai n behavior of skin (01559697) Atypical skin lesion (238.2) 2011 Problem resolved confirmed [id number]- Problem Common wart (05058068) Common wart (078.19) 2011 Problem resolved confirmed [id number]- Problem Chronic obstructive lung disease co-occurrent with acute bronchitis (303551202340433) Acute bronchitis with chronic obstructive pulmonary disease (COPD) (491.21) 2003 Problem resolved confirmed [id number]- Problem Anxiety (60101802) Anxiety (300.02) 09/20 Problem resolved confirmed [id number]- Problem Heart murmur (17921885) Cardiac murmur (785.2) 2003 Problem resolved confirmed [id number]- Problem Venous varices (096636204) Varicose leg veins (454.9) 2017 Problem resolved confirmed [id number]- Problem Acquired renal cyst (512681030) Acquired renal cyst (593.2) 2016 Problem resolved confirmed [id number]- Problem Wrist pain (73454871) Wrist pain (719.43) 2016 Problem resolved confirmed [id number]- Problem Hip pain (82177788) Hip pain (719.45) 2016 Problem resolved confirmed [id number]- Problem History of fall (357848002) History of fall (V15.88) 2016 Problem resolved confirmed [id number]- Problem Seborrheic keratosis (911684547) Seborrheic keratosis (702.19) 2006 Problem resolved confirmed [id number]- Problem Essential hypertension (93966370) Essential hypertension (401.1) 2003 Problem resolved confirmed [id number]- Problem Hypertension (99735560) HTN (401.1) 2003 Problem resolved confirmed [id number]- Problem Screening mammograph y (98499626) Screening mammogram - other (V76.12) 2016 Problem resolved confirmed [id number]- Plan Of Treatment No Information Medical (General) History Surgical History Surgery Date(Month/Year) CholecystectomyHysterectomy
--- OUTSIDE RECORDS SUMMARY | 2025-05-21 12:42 | XMS_ITS | Clinical Summary ---
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
--- OUTSIDE RECORDS SUMMARY | 2025-05-21 12:42 | XMS_ITS | Encounter Summary ---
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
--- OUTSIDE RECORDS SUMMARY | 2025-05-21 12:42 | XMS_ITS | Encounter Summary ---
Author Organization [facility] Address [address] [place] [address] Care Team Providers Care Bottom Buffer Name Role Phone Unavailable Primary Care Provider Unavailabl e Encounter Details Date Type Department Care Team (Latest Contact Info) Description 07/19/2003 Outpatient Historical [facility] Germain Mendiola, Feliberto Guzman MD [address] [place] [phone] Gynecologic examination (Primary Dx); PROLAPSE OF VAGINAL WALL; SCREENING FOR COND NEC; SCREENING MAL NEOP-CERVIX Social History Tobacco Use Types Packs/Day Years Used Date Smoking Tobacco: Never Assessed Comments Unknown Sex and Gender Information Value Date Recorded Sex Assigned at Not on file 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
--- OUTSIDE RECORDS SUMMARY | 2025-05-21 12:42 | XMS_ITS | Encounter Summary ---
Author Organization [facility] Address [address] [place] [address] Care Team Providers Care End Stapler Name Role Phone Unavailable Primary Care Provider Unavailabl e Encounter Details Date Type Department Care Team (Latest Contact Info) Description 08/28/2003 Outpatient Historical [facility] Osorio Sarmiento MD [address] [place] [address] PNEUMONIA, ORGANISM NOS (Primary Dx); ALLERGIC RHINITIS NOS Social History Tobacco Use Types Packs/Day Years Used Date Smoking Tobacco: Never Assessed Comments Unknown Sex and Gender Information Value Date Recorded Sex Assigned at Not on file 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
[2025-05-21 12:49] VITALS: BP 122/65; PULSE 99; RESP 16; TEMP 37.2; O2SAT 94; BMI 24.0
--- NOTE | 2025-05-21 13:56 | ED_ITS ---
HPI - GI Bleed 2 General: Chief complaint: GI Bleed Stated complaint: urgent care sent, bloody stool Time Seen by Provider: 05/21/25 13:51 History of Present Illness: 79-year-old female presents [facility] the [facility] with complaints of bright red blood per rectum. Its only occurred with bowel movements and after she wipes. Yesterday she had rather large amount she had taken some laxatives intermittently for the couple of days prior. She has previous had colonoscopies 1 on the chart from February 2020 showed moderate diverticulosis but no other significant abnormalities. There is no mention of polyps. She denies any abdominal pain. Associated symptoms: Denies abdominal pain, chills, fever(s) or rash Related Data Home Medications ?Medication ?Instructions ?Recorded ?Confirmed amlodipine 5 mg tablet 5 mg PO BID 05/21/25 5 Previous Rx's ?Medication ?Instructions ?Recorded lorazepam 1 mg tablet 1 mg PO TID PRN anxietry #60 tabs 03/14/25 amoxicillin 875 mg-potassium 1 tab PO BID #14 tabs 02/09 clavulanate 125 mg tablet Allergies Allergy/AdvReac Type Severity Reaction Status Date / Time No Known Allergies Allergy Verified 05/21/25 12:51 Review of Systems 2 Const: Denies: fever(s) or chills Card: Denies: chest pain Resp: Denies: dyspnea GI: Reports: hematochezia; Denies: abdominal pain : Denies: dysuria, urinary frequency or urinary urgency Musc: Denies: neck pain or back pain Skin/Breast: Denies: rash PFSH ED 2 PFSH: Medical History COVID-19 Positive Covid test 10/08/2021. Viral syndrome Vitamin D deficiency Multinodular goiter (nontoxic) Osteopenia after menopause Anxiety and depression Chronic constipation Melanoma Left cheek with wide excision in 2011 Hypertension Left breast lump Surgical History History of laparoscopic cholecystectomy History of hysterectomy History of colonoscopy with polypectomy Family History Denies family history of Anesthesia complication Bleeding disorder Social History Smoking and tobacco/nicotine status: never used tobacco/nicotine Second hand smoke exposure: No Alcohol intake: never Substance/Drug Use: never Adopted: No Caregiver/support person: Yes Lives independently: Yes Household members: spouse Housing: House Marital status: Current occupational status: retired Current occupational exposures/hazards: No Pets and animals: No Sexually active: No Do you think of yourself as: Straight/Heterosexual Current gender identity: Female Seble/Presybeterian: Presybeterian Physical Exam 2 Const: GENERAL APPEARANCE: cooperative ORIENTATION/CONSCIOUSNESS: Yes awake, Yes oriented to person, Yes oriented to place and Yes oriented to time HENMT: COMMON NORMALS: normocephalic, atraumatic and hearing grossly normal bilaterally HEAD & SCALP: normocephalic and atraumatic Resp: COMMON NORMALS: normal respiratory effort, No retractions, No use of accessory muscles and clear to auscultation bilaterally AUSCULTATION: clear to auscultation bilaterally Cardio: COMMON NORMALS: regular rate, regular rhythm and No murmurs present (Cardio) RATE: regular rate RHYTHM: regular rhythm GI: COMMON NORMALS: Soft to palpation and No hepatosplenomegaly present A USCULTATION: Yes normoactive bowel sounds PALPATION: Yes Soft to palpation, No Tenderness to palpation present (GI), No Guarding due to palpation present (GI) and Yes No hepatosplenomegaly present Extremity: COMMON NORMALS: normal to inspection, capillary refill normal, no clubbing, cyanosis or edema, no calf tenderness and no pedal edema Neuro: SENSORIUM/ORIENTATION: Yes oriented to person, Yes oriented to place and Yes oriented to time Skin: COMMON NORMALS: no rashes or lesions noted GENERAL SKIN EXAM: no rashes or lesions noted Course 2 Vital Signs: Vital signs: Vital Signs Temperature 99.0 F 05/21/25 12:49 Pulse Rate 84 05/21/25 15:40 Respiratory Rate 16 05/21/25 14:36 Blood Pressure 119/86 05/21/25 15:40 Pulse Oximetry 98 05/21/25 15:40 Oxygen Delivery Me thod Room Air 05/21/25 14:36 MDM - GI Bleed Medical Decision Making CT shows a descending colon: Colitis. Will start patient on Augmentin 875 1 p.o. twice daily. Clear liquid diet for next 24 to 48 hours and advance as tolerated. Encourage patient to follow-up with her primary care doctor in the next few weeks to reevaluate if she needs a repeat colonoscopy. Medical Records I reviewed the patient's medical records. Lab Data I reviewed the patient's lab results. 05/21/25 13:37 05/21/25 13:37 Radiology Impressions Abdomen/Pelvis CT 05/21/25 14:04 IMPRESSION: 1. Long segment submucosal edema with hyperemia of the mucosa and muscularis propria involving the descending colon. Narrowing of the lumen. Due to the long segment this is thought likely to be related to infectious/acute colitis/hemorrhage, less likely neoplastic. 2. Additional soft tissue abnormality with edema centered at the anorectal junction. Greatest soft tissue abnormality posterior and to the LEFT along the puborectalis muscle. Neoplasm is not excluded. Recommend colonoscopy. 3. Mildly enlarged iliac chain lymph nodes. There are several lymph nodes along the iliac chains measuring up to 1.6 cm. Metastatic disease needs to be excluded. 4. Normal appendix. 5. Small amount of fluid along the LEFT perinephric fascia associated with the colonic wall abnormality. 6. Hiatal hernia. 7. Prior cholecystectomy. Laboratory Results WBC 13.90 10^3/uL (3.29-11.43) H 05/21/25 13:37 RBC 4.87 10^6/uL (3.85-5.65) 05/21/25 13:37 Hgb 13.70 g/dL (11.27-16.99) 05/21/25 13:37 Hct 42.1 % (36-47) 05/21/25 13:37 MCV 86.4 fl (85-98) 05/21/25 13:37 MCH 28.1 pg (27-33) 05/21/25 13:37 MCHC 32.5 g/dL (30-55) 05/21/25 13:37 RDW 14.0 % (12.1-15.1) 05/21/25 13:37 Plt Count 380 10^3/cmm (157-399) 05/21/25 13:37 MPV 10.0 fL (7.4-10.4) 05/21/25 13:37 Neut % (Auto) 72.5 % 05/21/25 13:37 Lymph % (Auto) 17.6 % 05/21/25 13:37 Ralls % (Auto) 8.3 % 05/21/25 13:37 Eos % (Auto) 0.7 % 05/21/25 13:37 Baso % (Auto) 0.5 % 05/21/25 13:37 Neut # (Auto) 10.06 10^3/uL (1.8-7.7) H 05/21/25 13:37 Lymph # (Auto) 2.5 10^3/uL (0.8-4.8) 05/21/25 13:37 Ralls # (Auto) 1.2 10^3/uL (0.2-0.9) H 05/21/25 13:37 Eos # (Auto) 0.1 10^3/uL (0.0-0.8) 05/21/25 13:37 Baso # (Auto) 0.1 10^3/uL (0.0-0.1) 05/21/25 13:37 Nucleated RBC % (auto) 0 % 05/21/25 13:37 Nucleated RBCs # 0.0 /100WBC 05/21/25 13:37 PT 15.10 SECONDS (12.1-14.9) H 05/21/25 13:37 INR 1.11 (0.8-1.2) 05/21/25 13:37 Sodium 136 mmol/L (136-145) 05/21/25 13:37 Potassium 3.8 mmol/L (3.5-5.1) 05/21/25 13:37 Chloride 102 mmol/L (98-107) 05/21/25 13:37 Carbon Dioxide 23 mmol/L (22-29) 05/21/25 13:37 Anion Gap 14.8 (5-19) 05/21/25 13:37 BUN 11 mg/dL (8-23) 05/21/25 13:37 Creatinine 0.7 mg/dL (0.5-0.9) 05/21/25 13:37 GFR Calculation Not Reportable 05/21/25 13:37 Glucose 102 mg/dL (65-115) 05/21/25 13:37 Calculated Osmolality 282 mOsm/kg (285-295) L 05/21/25 13:37 Calcium 9.5 mg/dL (8.5-10.5) 05/21/25 13:37 Total Bilirubin 0.4 mg/dL (0.15-1.2) 05/21/25 13:37 AST 16 U/L (0-32) 05/21/25 13:37 ALT 14 U/L (0-33) 05/21/25 13:37 Alkaline Phosphatase 80 U/L (35-105) 05/21/25 13:37 Total Protein 7.4 g/dL (6.6-8.7) 05/21/25 13:37 Albumin 4.0 g/dL (3.5-5.2) 05/21/25 13:37 Globulin 3.4 g/dL (1.3-4.6) 05/21/25 13:37 Lipase 33 U/L (13-60) 05/21/25 13:37 All radiology interpretation(s) finalized by discharge Discharge Plan Discharge Patient Disposition: Home Clinical Impression: Colitis Condition: Stable Prescriptions: New amoxicillin-pot clavulanate 875-125 mg tablet 1 tab PO BID Qty: 14 0RF No Action lorazepam 1 mg tablet 1 mg PO TID PRN (Reason: anxietry) Qty: 60 3RF amlodipine 5 mg tablet 5 mg PO BID Discharge Orders: Discharge ED (Routine); Ordered 05/21/25 Ordered By: Rui Tavarez Referrals: Ellis Lemus MD [Primary Care Provider, Family Practice] Discharge Diet: Clear Liquid Discharge Activity: Increase activity as tolerated Patient Instructions: Colitis (ED), Opioid Safety, Pain Management, Patient Portal & Leigh Ann Instructions Activity Restrictions/Additional Instructions: Thank you for choosing [facility] for your healthcare needs today. It is very important that you follow up as instructed or that you return to the Emergency Department should you have concerns or if your condition changes or worsens in any way. You were seen in the emergency room with complaints of blood from stool. CT shows some inflammation of the colon. Recommend you start on oral antibiotics 1 pill twice a day for 7 days. You should follow-up your primary care doctor to discuss whether or not you will need another colonoscopy to evaluate after this resolves. Recommend clear liquid diet for 2 to 3 days and advance as tolerated Print Language: Nicaraguan Coding Level of Care Code ED Dehydration Plant Operator for Ady Wagoner
[2025-05-21 14:00] LABS: Hematocrit 42.1 % (36-47); Hemoglobin 13.70 g/dL (11.27-16.99); Mean Corpuscular HGB Conc 32.5 g/dL (30-55); Mean Corpuscular Hemoglobin 28.1 pg (27-33); Mean Corpuscular Volume 86.4 fl (85-98); Nucleated Red Blood Cells % 0 %; Platelet Count 380 10^3/cmm (157-399); Red Blood Count 4.87 10^6/uL (3.85-5.65); White Blood Count 13.90 10^3/uL (3.29-11.43)
--- NOTE | 2025-05-21 14:04 | CT_ITS ---
WS: [id number] CT ABDOMEN AND PELVIS WITH CONTRAST HISTORY: Rectal bleeding TECHNIQUE: Imaging performed of the abdomen and pelvis with IV contrast. Single phase imaging of the abdomen. Coronal and sagittal reformats are submitted. All CT scans at [facility] use at least one of these dose optimization techniques: automated exposure control; mA and/or kV adjustment per patient size (includes targeted exams where dose is matched to clinical indication); or iterative reconstruction. IV CONTRAST: Omnipaque 350; 100 mL IV. Oral contrast: No DLP: 541.44 mGy.cm COMPARISON: 02/01/2020 Lower thorax: Lung bases are clear. Heart is normal size. Small hiatal hernia. Liver/biliary system: Normal size liver with a few scattered hepatic cysts. No solid mass. Gallbladder: Status post cholecystectomy. Pancreas: Normal size pancreas and pancreatic duct. No adjacent inflammation. Spleen: Normal size spleen. No mass or infarct. Adrenal glands: Normal RIGHT adrenal gland. Very mild nodularity at the LEFT adrenal gland. Right kidney: Normal size kidney. Small scattered cysts. The largest upper pole 2.6 cm. Left kidney: Normal size with no obstruction. Small scattered cortical cyst. The largest in the upper pole 1.0 cm. Aorta: Mild atherosclerosis. Lymphadenopathy: There are shotty retroperitoneal lymph nodes. There are additional lymph nodes which are enlarged and hypervascular along the iliac chains. Largest LEFT iliac chain lymph node is 1.6 cm in transverse diameter. Largest lymph node LEFT iliac chain 1.6 cm in diameter. There is several lymph nodes extending along the obturator and external iliac chains. Free fluid: There is a small amount of fluid along the LEFT perirenal fascia closely associated with the abnormal descending colon. GI tract: Stomach is normally distended. No small bowel obstruction. Normal appendix. Long segment colonic abnormality beginning at the splenic flecture and extending contiguously through the sigmoid. There is pericolonic fat stranding with enhancement of the mucosa and muscularis propria. Edematous changes in the submucosa. Lumen is narrowed due to the edema. Additional abnormality noted near the anorectal junction. Abnormal soft tissue thickening with narrowing of the lumen along the posterior and slightly LEFT lateral anorectal wall. There is edema extending into the LEFT. Wall thickening measuring up to 10 mm. Decreased enhancement and in the posterior wall. This is extending to the anus. Mass versus inflammation extends along the LEFT puborectalis muscle. Abdominal wall: Fat containing umbilical hernia. Pelvis: No free fluid or adenopathy within the pelvis. Prior hysterectomy. Urinary bladder is normal. Bones: Osteopenia. CT/CT abdomen pelvis w con* [id number] IMPRESSION: 1. Long segment submucosal edema with hyperemia of the mucosa and muscularis p ropria involving the descending colon. Narrowing of the lumen. Due to the long segment this is thought likely to be related to infectious/acute colitis/hemorr ann-marie, less likely neoplastic. 2. Additional soft tissue abnormality with edema centered at the anorectal femi ction. Greatest soft tissue abnormality posterior and to the LEFT along the pub orectalis muscle. Neoplasm is not excluded. Recommend colonoscopy. 3. Mildly enlarged iliac chain lymph nodes. There are several lymph nodes pete g the iliac chains measuring up to 1.6 cm. Metastatic disease needs to be exclu ded. 4. Normal appendix. 5. Small amount of fluid along the LEFT perinephric fascia associated with the colonic wall abnormality. 6. Hiatal hernia. 7. Prior cholecystectomy.
[2025-05-21 14:16] LABS: INR 1.11 (0.8-1.2); Prothrombin Time 15.10 SECONDS (12.1-14.9)
[2025-05-21 14:18] LABS: Alanine Aminotransferase 14 U/L (0-33); Albumin Level 4.0 g/dL (3.5-5.2); Alkaline Phosphatase 80 U/L (35-105); Anion Gap 14.8 (5-19); Aspartate Amino Transferase 16 U/L (0-32); Blood Urea Nitrogen 11 mg/dL (8-23); Calcium 9.5 mg/dL (8.5-10.5); Carbon Dioxide 23 mmol/L (22-29); Chloride 102 mmol/L (98-107); Creatinine Clr Calc Pharmacy 53.2684; Globulin 3.4 g/dL (1.3-4.6); Glucose 102 mg/dL (65-115); Lipase 33 U/L (13-60); Osmolality Calculated 282 mOsm/kg (285-295); Potassium 3.8 mmol/L (3.5-5.1); Sodium 136 mmol/L (136-145); Total Protein 7.4 g/dL (6.6-8.7)
[2025-05-21 14:36] VITALS: BP 124/81; PULSE 84; RESP 16; O2SAT 95
[2025-05-21] MEDS: iohexol 350 mg/mL 500 mL Btl (per mL) IV (14:45)
[2025-05-21 15:40] VITALS: BP 119/86; PULSE 84; O2SAT 98
== END 2025-05-21 15:46 | disposition home or self-care (01) ==
PROVIDERS: Emergency Medicine; Emergency Provider Family Medicine; PCP Family Medicine
DX: K52.9 Noninfective gastroenteritis and colitis, unspecified (principal); I10 Essential (primary) hypertension; Z85.820 Personal history of malignant melanoma of skin
CPT/HCPCS: 36415; 74177; 80053; 83690; 85025; 85610; 99285

== ENCOUNTER 2025-08-14 13:08 | Outpatient (CLI) | payer MEDICARE, SELFPAY ==
--- NOTE | 2025-08-14 13:25 | USR_ITS ---
PROCEDURE INFORMATION: Exam: US Soft Tissue Head and Neck, Thyroid Exam date and time: 08/14/2025 2:03 PM Age: 79 years old Clinical indication: Condition or disease; Thyroid disorder; Other: Thyroid nodules TECHNIQUE: Imaging protocol: Real-time ultrasound scan of the neck with image documentation. Exam focused on the thyroid. COMPARISON: US thyroid [id number] 04/17/2025 2:14 PM FINDINGS: Right lobe: 3.7 x 1.8 x 1.6 cm Volume: 4.99 cm3. Normal sized gland. Solid and cystic nodule with coarse calcification in the mid to lower RIGHT thyroid. Nodule measure up to 1.0 x 1.0 x 1.2 cm. There are a few unchanged smaller additional nodules. Left lobe: 4.4 x 1.8 x 1.5 cm. Volume: 5.5 cm3. Normal sized gland with several nodules. Solid and cystic nodule mid gland with a few punctate calcifications measures 1.1 x 1.3 x 1.5 cm. Additional solid nodule with a few punctate calcifications measures 1.2 x 1.1 x 1.5 cm. Location has not been otherwise labeled. These nodules appear to be in the mid and lower gland. Isthmus: 0.3 cm. US/US thyroid [id number] IMPRESSION: 1. Bilateral thyroid nodules. 2. TI-RADS 4; mid RIGHT thyroid nodule. Findings similar to prior. If not already done, ultrasound-guided FNA could be considered. 3. TI-RADS 4; 2 nodules in the LEFT thyroid. Both of these nodules have punctate calcifications and suspicious features but similar to prior. If not already done, ultrasound-guided FNA could be considered.
== END 2025-08-14 13:09 | disposition home or self-care (01) ==
LOC: RAD 13:09
PROVIDERS: PCP Family Medicine; Visit Provider Family Medicine
DX: E04.2 Nontoxic multinodular goiter (principal)
CPT/HCPCS: 76536

== ENCOUNTER 2025-08-31 12:01 | Outpatient (CLI) | payer MEDICARE, SELFPAY | END 2025-08-31 12:02 | disposition home or self-care (01) | LOC: LAB 12:02 | PROVIDERS: PCP Family Medicine; Visit Provider Dermatology | DX: Z08 Encounter for follow-up examination after completed treatment for malignant neoplasm (principal); Z85.820 Personal history of malignant melanoma of skin | CPT/HCPCS: 83615 ==

== ENCOUNTER 2025-10-05 11:44 | Outpatient (CLI) | payer MEDICARE, SELFPAY ==
--- NOTE | 2025-10-05 11:53 | PETR_ITS ---
PROCEDURE INFORMATION: Exam: PET/CT Whole Body Exam date and time: 10/05/2025 12:55 PM Age: 80 years old Clinical indication: Melanoma resected from the left cheek area in 2013. Enlarged lymph nodes. Prior surgery; Surgery date: 6+ months; Surgery type: Gb, hyst, left cheek LABS AND CLINICAL REPORTS: Glucose: 109 mg/dl Treatment strategy for malignancy (PET staging): Initial Staging (PI) TECHNIQUE: Imaging protocol: Following at least four-hour fasting and following the injection of radiopharmaceutical, low dose CT images were obtained. Then, PET images were obtained. Attenuation corrected images were constructed using the CT scan. Fused images of PET and CT were reviewed. The standardized uptake values (SUV) reported below are maximum values within a region of interest, expressed in gm/ml. Exam includes the whole body. SUV normalization method: BodyWeight Radiopharmaceutical: 10.51 mCi F-18 FDG (Fluorodeoxyglucose), IV. Time of imaging post radiopharmaceutical administration: 50 minutes Injection site: left ac COMPARISON: PET-CT 03/2025, CT abdomen pelvis w con 05/21/2025 and 02/01/2020, thyroid ultrasound 04/17/2025 FINDINGS: Brain: On the nondedicated limited brain images there is no abnormal distribution of the radiotracer in the garcia and white matter. Pharynx: Normal distribution of the radiotracer in nasopharyngeal, oropharyngeal structures. Larynx: Normal distribution of the radiotracer in laryngeal structures. Thyroid: Normal in size with persistent 0.7 cm calcified nodule in the right lobe currently measuring 3.4 SUV, previously 4.5 SUV already evaluated by thyroid ultrasound on 04/17/2025 as TR 4 nodule. Lungs, pleura and trachea: No abnormal uptake. No suspicious lung nodules or masses. No pleural effusion. Heart: Normal physiologic uptake. There is no cardiomegaly. Coronary artery calcification is present. There is no pericardial effusion. Mediastinal space: No abnormal uptake. Diaphragm: There is small hiatal hernia. Esophagus: Increased uptake in the distal esophagus with no corresponding CT abnormality is probably benign. Liver: Normal size without abnormal radiotracer uptake. Stable benign findings (small calcified granulomas, 1 cm simple cyst in the segment 4). Gallbladder and biliary ducts: Unremarkable. Status post cholecystectomy. Pancreas: Normal distribution of radiotracer. Spleen: Normal size without abnormal radiotracer uptake. Stable small calcified granulomas. Adrenal glands: No abnormal uptake. No nodules Kidneys and ureters: Normal physiologic uptake. No hydronephrosis. Stable bilateral simple renal cysts including the largest 2.6 cm cyst in the upper pole of the right kidney. Stomach and bowel: Diffusely increased uptake in the colon with no corresponding CT abnormality is likely benign. No abnormal dilatation of the bowel. Mild diverticulosis in the sigmoid colon. Intraperitoneal and retroperitoneal spaces: No abnormal uptake. No ascites. Urinary bladder: Normal physiologic uptake. Reproductive: No abnormal uptake. The uterus is absent post surgically. Vasculature: No abnormal uptake. Lymph nodes: left common iliac retroperitoneal lymph node on axial image 254 measures 1.7 x 1.3 cm/3.8 SUV, previously 1.6 x 1 cm/1.9 SUV. Stable in size 1.6 cm right common iliac lymph node on axial image 242 measures 3.9 SUV, previously 1.9 SUV. No FDG avid lymphadenopathy in the head, neck, chest, pelvis, and extremities. Stable sequela of exposure to granulomatous disease with calcified granulomas within normal-sized mediastinal and left hilar lymph nodes. Skeleton: Increased synovial uptake in the shoulders and knees is suggestive of benign inflammatory finding. Stable hemangioma occupying L1 vertebral body. Soft tissues: No abnormal uptake in the visualized head, neck, chest, abdomen, pelvis, and extremities. METRICS: Mediastinal blood pool: Max SUV of 2.6, mean SUV of 2.2 Liver uptake: Max SUV of 3.4, mean SUV of 2.7. PET/PET WB melanoma INITIAL [id number] IMPRESSION: Borderline prominent in size bilateral common iliac lymph nodes stable in size since 04/06/2025 with no significant change since 02/01/2020 show new borderline uptake of 3.9 SUV only slightly exceeding maximal uptake of liver parenchyma. Long-term size stability makes metastatic melanoma unlikely. Otherwise there are no abnormally enlarged or FDG avid lymph nodes. Previously present FDG avid small right thyroid nodule decrease in uptake currently measuring 3.4 SUV evaluated by thyroid ultrasound on 04/17/2025 as TR 4 nodule.
== END 2025-10-05 11:45 | disposition home or self-care (01) ==
LOC: RAD 11:48
PROVIDERS: PCP Family Medicine; Visit Provider Dermatology
DX: Z85.820 Personal history of malignant melanoma of skin (principal); E04.1 Nontoxic single thyroid nodule; I25.10 Atherosclerotic heart disease of native coronary artery without angina pectoris; K44.9 Diaphragmatic hernia without obstruction or gangrene; K22.9 Disease of esophagus, unspecified; Z90.49 Acquired absence of other specified parts of digestive tract; K76.89 Other specified diseases of liver; D73.9 Disease of spleen, unspecified; Q61.02 Congenital multiple renal cysts; K57.30 Diverticulosis of large intestine without perforation or abscess without bleeding; Z90.710 Acquired absence of both cervix and uterus; R59.0 Localized enlarged lymph nodes; D18.09 Hemangioma of other sites
CPT/HCPCS: 78816; A9552